=== PATIENT | male | born 1945 | race Caucasian/White ===

== ENCOUNTER 2019-07-05 08:26 | Day surgery (SDC) | payer MEDICARE ==
[~2019-07-05] VITALS: Ht 188 cm; Wt 85.0 kg
[2019-07-05 09:38] VITALS: BP 164/94; PULSE 82; TEMP 98
[2019-07-05] MEDS ORDERED: ASPIRIN E.C. 8181 MG PO (09:47)
[2019-07-05] MEDS ORDERED: ULTRAM 50MG TAB50 MG PO (09:48)
[2019-07-05] MEDS ORDERED: COZAAR100 MG PO (09:48)
[2019-07-05] MEDS ORDERED: SELENIUM (09:50)
[2019-07-05] MEDS ORDERED: LEADER FIBER1 POW PO (09:50)
[2019-07-05] MEDS ORDERED: TYLENOL 500MG500 MG PO (09:52)
[2019-07-05 13:21] VITALS: BP 160/73; PULSE 74; TEMP 97.5
[2019-07-05 13:36] VITALS: BP 147/72; PULSE 61
[2019-07-05 13:51] VITALS: BP 159/93; PULSE 66
[2019-07-05 14:06] VITALS: BP 146/90; PULSE 80
[2019-07-05 14:15] VITALS: BP 151/85; PULSE 97
--- NOTE | 2019-07-05 15:30 | NUR ---
PT RETURNED TO BAY #1 PER CART FROM PACU. PT ALERT AND ORIENTATED, SLEEPY. PT RATES PAIN AT 3-4 ON 0-10 PAIN SCALE. LUNGS CLEAR WITH DIMINISHES BASES. O2 ON AT 2L WITH O2 SATS IN THE UPPER 90'S. 97-99% HRR, BOWEL SOUNDS PRESENT. PT DENIES NAUSEA, AND ASKS FOR SPRITE AND CRACKERS. INCISIONS X3 NOTED ON ABDOMEN. AREAS ARE CLEAN, DRY AND INTACT. IV SITE INFUSING LR WITHOUT DIFFICULTY. SITE IS WITHOUT REDNESS OR SWELLING. IS AT BEDSIDE, WILL CONT TO MONITOR PROGRESSION.
--- NOTE | 2019-07-05 15:36 | NUR ---
PT ALERT AND ORIENTATED, TOLERATING SPRITE, CRACKERS, JELLO, AND PUDDING. DENIES NAUSEA, NO INCREASE IN PAIN. SURGICAL SITES ARE CLEAN, DRY AND INTACT. NO DRAINAGE NOTED. VSS. PT UP TO BATHROOM AND VOIDED WITHOUT DIFFICULTY. IVF DISCONTINUED. IN ROOM TALKING WITH PT. CALL LIGHT IN REACH.
--- NOTE | 2019-07-05 15:43 | NUR ---
PT UP TO VOID X2 WITHOUT DIFFICULTY. VSS, A/OX3. DENIES NAUSEA. RATES PAIN BETWEEN A 3-4 ON 0-10 SCALE AND STATES, 'ITS TOLERABLE'. ABD SITES ARE CLEAN DRY AND INTACT. IV SITE DC'D. SITE IS WITHOUT REDNESS OR SWELLING. DISCHARGE INSTRUCTIONS GIVEN, PT AND VOICE UNDERSTANDING. 2 WEEK FOLLOW-UP APPT MADE. PT TAQKEN OUT OF FACITLITY PER WC TO FAMILY CAR. DRIVING.
== END 2019-07-05 15:50 | disposition home or self-care (01) ==
LOC: SDCO 08:26
DX: K40.90 Unilateral inguinal hernia, without obstruction or gangrene, not specified as recurrent (principal); Z90.49 Acquired absence of other specified parts of digestive tract; Z80.0 Family history of malignant neoplasm of digestive organs; Z82.49 Family history of ischemic heart disease and other diseases of the circulatory system; I10 Essential (primary) hypertension; Z87.891 Personal history of nicotine dependence; G89.4 Chronic pain syndrome; M48.00 Spinal stenosis, site unspecified; Z79.899 Other long term (current) drug therapy; Z79.82 Long term (current) use of aspirin; E78.00 Pure hypercholesterolemia, unspecified
CPT/HCPCS: C1781; J0690; J1100; J1885; J2405; J2704; J2710; J3010; J7120

== ENCOUNTER → 2019-11-16 | Outpatient (CLI) | payer MEDICARE ==
[~2019-11-16] MED LIST: ASPIRIN E.C. 8181 MG PO; COZAAR100 MG PO; LEADER FIBER1 POW PO; PROBIOTIC FORMU1 CAP PO; SELENIUM; STOOL SOFTENER100 M2 PO; TYLENOL 500MG500 MG PO; ULTRAM 50MG TAB50 MG PO
== END ==
LOC: COL.RAD 07:51
DX: N20.0 Calculus of kidney (principal); N13.39 Other hydronephrosis; N28.1 Cyst of kidney, acquired; M47.816 Spondylosis without myelopathy or radiculopathy, lumbar region